=== PATIENT | male | born 1995 | race Caucasian/White ===

== ENCOUNTER 2022-01-30 19:15 | Emergency (ER) | payer OTHER ==
[~2022-01-30] VITALS: Ht 193 cm; Wt 104.3 kg
[2022-01-30 19:15] VITALS: BP 128/90
--- NOTE | 2022-01-30 19:15 | NUR ---
TO BED AMBULATORY, BIBA WITH C/O ALLERGIC REACTION, AFTER DRINKING GRAPE JUICE.
[2022-01-30] MEDS ORDERED: predniSONE 20 MG TAB PO ONE (19:25)
[2022-01-30] MEDS ORDERED: diphenhydrAMINE 50 MG CAP PO ONE (19:25)
--- NOTE | 2022-01-30 19:56 | NUR ---
ASSUMED CARE OF PT AT THIS TIME. PT IN POSITION OF COMFORT. PT MEDICATED PER ORDERS GIVEN. VSS. PT DENIES ANY PAIN AT THIS TIME. WILL CONTINUE TO MONITOR PAIN/COMFORT.
--- NOTE | 2022-01-30 20:38 | NUR ---
PT MOVED TO CHAIR C
[2022-01-30] MEDS ORDERED: PRED50TA2 PO (20:51)
[2022-01-30] MEDS ORDERED: EPIN1KIT32 IM (20:51)
[2022-01-30] MEDS ORDERED: DIPH25TA53 PO (20:51)
[2022-01-30 22:29] VITALS: BP 140/72
--- NOTE | 2022-01-30 22:31 | NUR ---
Patient discharged with v/s stable. Written and verbal after care instructions given and explained. Patient alert, oriented and verbalized understanding of instructions. Ambulatory with steady gait. All questions addressed prior to discharge. ID band removed. Patient advised to follow up with PMD. Rx of BENADRYL, EPINEPHRINE, AND PREDNISONE given. Patient educated on indication of medication including possible reaction and side effects. Opportunity to ask questions provided and answered.
== END 2022-01-30 22:31 | disposition home or self-care (01) ==
LOC: MED 19:15
DX: T78.40XA Allergy, unspecified, initial encounter (principal); X58.XXXA Exposure to other specified factors, initial encounter
CPT/HCPCS: 99283; J7512; Q0163